=== PATIENT | female | born 1945 | race Caucasian/White ===

== ENCOUNTER → 2019-02-17 12:25 | Outpatient (CLI) | payer OTHER, SELFPAY ==
--- NOTE | 2019-02-17 | DI.US.S_ITS ---
PROCEDURE: US ABDOMEN LIMITED INDICATIONS: ABNOMAL LFTS TECHNIQUE: Real-time focused scanning was performed of the abdomen, with image documentation. COMPARISON: None. FINDINGS: Liver is diffusely increased in echogenicity. No focal hepatic abnormalities identified. Normal hepatic size. Gallbladder is contracted and suboptimally visualized in this patient who did not fast prior to the examination. No biliary dilatation. Normal pancreas. IMPRESSION: 1. Increased hepatic echogenicity noted possibly related to hepatic steatosis but other sources of hepatocellular disease cannot be excluded. Recommend clinical correlation. 2. Contracted gallbladder which is suboptimally visualized. Dictated by: Alvin BROWN Interpreted: Julina Rocha MD on 02/17/2019 at 16:08 Approved by: Julian Rocha M.D. on 02/17/2019 at 16:33
== END ==
PROVIDERS: Visit Provider Internal Medicine
DX: R74.8 Abnormal levels of other serum enzymes (principal)
CPT/HCPCS: 76705

== ENCOUNTER 2022-01-04 11:36 | Emergency (ER) | payer OTHER, SELFPAY ==
[2022-01-04 11:55] VITALS: BP 129/56; PULSE 122; RESP 18; TEMP 39.4; O2SAT 93; BMI 27.3
--- NOTE | 2022-01-04 12:00 | DI.RAD.S_ITS ---
PROCEDURE: XR CHEST 1V INDICATIONS: suspected sepsis TECHNIQUE: One view of the chest was acquired. COMPARISON: None. FINDINGS: Surgical changes and devices: None. Lungs and pleura: There is mild, diffuse interstitial prominence. No focal airspace consolidation. No pleural effusion or pneumothorax. Mediastinum: Mediastinal contours appear normal. Heart size is normal. Bones and chest wall: No suspicious bony lesions. Overlying soft tissues appear unremarkable. IMPRESSION: Interstitial prominence suggesting edema or early ARDS. Dictated by: Kiya Peguero M.D. on 01/04/2022 at 13:34 Approved by: Kiya Peguero M.D. on 01/04/2022 at 13:34
[2022-01-04] MEDS: SODIUM CHLORIDE 0.9% 1,000 ML 1000 ML IV (12:27)
[2022-01-04] MEDS: ACETAMINOPHEN 325 MG TABLET 975 MG PO (12:27)
--- NOTE | 2022-01-04 12:35 | PC.NURSE ---
lab draw and iv started by [facility] Dental Surgeon student.
[2022-01-04 12:57] LABS: Add Manual Diff / Slide Review NO; Basophils Absolute Auto 0 /uL (0-100); Basophils Percent Auto 0.3 % (0-2); Eosinophils Absolute Auto 100 /uL (0-450); Eosinophils Percent Auto 0.7 % (2-4); Hematocrit 38.1 % (36-46); Lymphocytes Absolute Auto 400 /uL (1100-4500); Mean Corpuscular HGB Conc 34.1 % (30-36); Mean Corpuscular Hemoglobin 30.2 PG (26-34); Mean Corpuscular Volume 88.6 fL (80-100); Monocytes Absolute Auto 500 /uL (0-900); Monocytes Percent Auto 3.8 % (3-14); Neutrophils Absolute Auto 11200 /uL (1500-7000); Neutrophils Percent Auto 92.2 % (50-75); Platelet Count 289 X10^3/uL (150-400); Red Cell Distribution Width 13.4 % (11.6-14.8); White Blood Cell Count 12.2 X10^3/uL (4.5-11.0)
[2022-01-04 13:00] VITALS: PULSE 108; RESP 19; O2SAT 93
[2022-01-04 13:00] LABS: Lactate (Lactic Acid) 1.1 mmol/L (0.7-2.1)
[2022-01-04 13:01] VITALS: BP 100/52; PULSE 104; RESP 17; O2SAT 93
[2022-01-04 13:02] LABS: Alanine Aminotransferase 67 IU/L (<35); Albumin 4.2 g/dL (3.5-5.0); Albumin Globulin Ratio 1.2 (1.0-2.8); Alkaline Phosphatase 163 U/L (38-126); Aspartate Aminotransferase 49 IU/L (14-36); BUN Creatinine Ratio 18.2 (6-22); Bilirubin Total 0.7 mg/dL (0.2-1.3); Blood Urea Nitrogen 14 mg/dL (7-17); Carbon Dioxide 28 mmol/L (22-32); Chloride 95 mmol/L (98-107); Estimated Glomerular Filt Rate > 60 mL/min (>60); Globulin 3.4 g/dL (1.7-4.1); Glucose 118 mg/dL (80-110); HEMOLYSIS < 15 (0-50); Lipase 61 U/L (23-300); Potassium 4.1 mmol/L (3.4-5.1); Sodium 131 mmol/L (137-145); Total Protein 7.6 g/dL (6.3-8.2)
--- NOTE | 2022-01-04 13:21 | ED.SEPSIS ---
HPI - Sepsis General Chief Complaint: Fever Mode of arrival: Wheelchair Source: patient Limitations: no limitations Evaluation Sepsis Screen: Possible Sepsis Risk Sepsis Infection Criteria Present: Suspected New Infection Narrative: Patient is a 76-year-old female without past medical history presenting today with fever. She actually says she started having some and chills on the 25 of December. She said she had fever for couple days and started feeling better and had fever again. No sore throat cough. Denies any painful frequent your. No chest pain. Just generally weak fatigued and not feeling well. She is currently febrile with a fever of 103 and tachycardic. Review of Systems Review of Systems Narrative: GENERAL: See HPI HEENT: Denies sinus pain, ear pain, sore throat, difficulty swallowing, neck pain RESPIRATORY: Denies dyspnea, cough, wheezing, hemoptysis, sputum. CARDIOVASCULAR: Denies chest pain, palpitations, orthopnea, edema GASTROINTESTINAL: Denies nausea, vomiting, abdominal pain, diarrhea, constipation, melena. : Denies dysuria, frequency, incontinence, hematuria, urinary retention, flank pain. MUSCULOSKELETAL: Denies weakness, joint pain, or bony pain SKIN: No rash, no erythema, no pruritus NEUROLOGIC: Denies weakness, dizziness, headache, numbness, change in speech, confusion PSYCHIATRIC: No concerning psychosocial issues. 12 point review of systems is negative except for those stated above and HPI Patient History Social History Smoking Status: Unknown if ever smoked Smoking Status: Unknown if ever smoked alcohol intake frequency: holidays/special occasions only Substance Use Type: does not use Exam Initial Vital Signs Initial Vital Signs: Vital Signs Temperature 103.0 F H 01/04/22 11:55 Pulse Rate 122 H 01/04/22 11:55 Respiratory Rate 18 01/04/22 11:55 Blood Pressure 129/56 L 01/04/22 11:55 Pulse Oximetry 93 01/04/22 11:55 Oxygen Delivery Method 01/04/22 11:55 GENERAL: Alert 76-year-old female and in no acute distress. HEENT: Head atraumatic,EOMI, pupils reactive, face symmetric, moist mucous membranes CARDIOVASCULAR: Regular rate and rhythm without murmurs, rubs or gallops. RESPIRATORY: Breath sounds equal bilaterally, no wheezes rales or rhonchi. ABDOMEN: Soft, nontender. Normoactive bowel sounds all 4 quadrants. No guarding or rebound. EXTREMITIES: Normal range of motion, no clubbing or edema. Neurovascularly intact NEUROLOGICAL: Alert and oriented x4.Normal gait and speech. SKIN: Warm, dry, no laceration, no petechiae, no rashes or lesions. Course Orders Ordered: Discontinued Medications Acetaminophen (Acetaminophen 325 Mg Tablet) 975 mg PO NOW ONE Stop: 01/04/22 12:24 Last Admin: 01/04/22 12:27 Dose: 975 mg Documented By: DONA Sodium Chloride (Normal Saline 0.9%) 1,000 mls @ 1,000 mls/hr IV BOLUS ONE Stop: 01/04/22 12:59 Last Infusion: 01/04/22 14:28 Dose: 0 mls/hr Documented By: Admin: 01/04/22 12:27 Dose: 1,000 mls/hr Documented By: DONA Vital Signs Vital signs: Vital Signs - 8 hr 01/04/22 11:55 01/04/22 13:44 Temperature 103.0 F H 99.7 F H Pulse Rate 122 H Respiratory Rate 18 Blood Pressure 129/56 L Pulse Oximetry 93 Oxygen Delivery Method Room Air Sepsis Guideline Criteria Level 1 - Infection Sepsis Infection Criteria Present: Suspected New Infection Treatment Initiated Antibiotics:: IV antimicrobials will be initiated as soon as possible after recognition of sepsis state and within one hour for both sepsis and septic shock. MDM - Sepsis Lab Data Result diagrams: 01/04/22 12:30 01/04/22 12:30 Labs: Lab Results 01/04/22 01/04/22 01/04/22 Range/Units 12:00 12:30 12:30 WBC 12.2 H (4.5-11.0) X10^3/uL RBC 4.30 (4.0-5.2) X10^6/uL Hgb 13.0 (12.0-16.0) g/dL Hct 38.1 (36-46) % MCV 88.6 (80-100) fL MCH 30.2 (26-34) PG MCHC 34.1 (30-36) % RDW 13.4 (11.6-14.8) % Plt Count 289 (150-400) X10^3/uL Neut % (Auto) 92.2 H (50-75) % Lymph % (Auto) 3.0 L (25-40) % Mclennan % (Auto) 3.8 (3-14) % Eos % (Auto) 0.7 L (2-4) % Baso % (Auto) 0.3 (0-2) % Neut # (Auto) 33129 H (1926-3910) /uL Lymph # (Auto) 400 L (3976-0043) /uL Mclennan # (Auto) 500 (0-900) /uL Eos # (Auto) 100 (0-450) /uL Baso # (Auto) 0 (0-100) /uL Sodium 131 L (137-145) mmol/L Potassium 4.1 (3.4-5.1) mmol/L Chloride 95 L (98-107) mmol/L Carbon Dioxide 28 (22-32) mmol/L BUN 14 (7-17) mg/dL Creatinine 0.77 (0.52-1.04) mg/dL Estimated GFR > 60 (>60) mL/min BUN/Creatinine Ratio 18.2 (6-22) Glucose 118 H (80-110) mg/dL Lactate (0.7-2.1) mmol/L Calcium 9.0 (8.4-10.2) mg/dL Total Bilirubin 0.7 (0.2-1.3) mg/dL AST 49 H (14-36) IU/L ALT 67 H (<35) IU/L Alkaline Phosphatase 163 H (38-126) U/L Total Protein 7.6 (6.3-8.2) g/dL Albumin 4.2 (3.5-5.0) g/dL Globulin 3.4 (1.7-4.1) g/dL Albumin/Globulin Ratio 1.2 (1.0-2.8) Lipase 61 (23-300) U/L Procalcitonin 0.40 (<0.5) ng/mL SARS-CoV-2 (PCR) Positive H (Negative) 01/04/22 Range/Units 12:30 WBC (4.5-11.0) X10^3/uL RBC (4.0-5.2) X10^6/uL Hgb (12.0-16.0) g/dL Hct (36-46) % MCV (80-100) fL MCH (26-34) PG MCHC (30-36) % RDW (11.6-14.8) % Plt Count (150-400) X10^3/uL Neut % (Auto) (50-75) % Lymph % (Auto) (25-40) % Mclennan % (Auto) (3-14) % Eos % (Auto) (2-4) % Baso % (Auto) (0-2) % Neut # (Auto) (8619-7791) /uL Lymph # (Auto) (0378-2547) /uL Mclennan # (Auto) (0-900) /uL Eos # (Auto) (0-450) /uL Baso # (Auto) (0-100) /uL Sodium (137-145) mmol/L Potassium (3.4-5.1) mmol/L Chloride (98-107) mmol/L Carbon Dioxide (22-32) mmol/L BUN (7-17) mg/dL Creatinine (0.52-1.04) mg/dL Estimated GFR (>60) mL/min BUN/Creatinine Ratio (6-22) Glucose (80-110) mg/dL Lactate 1.1 (0.7-2.1) mmol/L Calcium (8.4-10.2) mg/dL Total Bilirubin (0.2-1.3) mg/dL AST (14-36) IU/L ALT (<35) IU/L Alkaline Phosphatase (38-126) U/L Total Protein (6.3-8.2) g/dL Albumin (3.5-5.0) g/dL Globulin (1.7-4.1) g/dL Albumin/Globulin Ratio (1.0-2.8) Lipase (23-300) U/L Procalcitonin (<0.5) ng/mL SARS-CoV-2 (PCR) (Negative) Urine Dip Bedside Urine Glucose Negative Bedside Urine Bilirubin - Negative Bedside Urine Ketone +/- 5 Urine Specific Weaver 1.015 Bedside Urine Occult Blood - Negative Bedside Urine pH 7.0 Bedside Urine Protein - Negative Bedside Urine Urobilinogen - Negative Bedside Urine Nitrite - Negative Bedside Urine Leukocytes - Negative Esterase Imaging Data Chest x-ray: Radiologist's Impression: Patient: Emma Palumbo MR#: [id number] : 1945 Acct:[id number] Age/Sex: 76 / F Date of Service: 01/04/22 Loc: ED Accession Number: [id number] ?? Procedure: XR chest 1V Ordering Provider: Hannah Arnett D.O. PROCEDURE:? XR CHEST 1V ? INDICATIONS:? suspected sepsis ? TECHNIQUE:? One view of the chest was acquired.? ? COMPARISON:? None. ? FINDINGS:? ? Surgical changes and devices:? None.? ? Lungs and pleura:? There is mild, diffuse interstitial prominence.? No focal airspace consolidation.? No pleural effusion or pneumothorax. ? Mediastinum:? Mediastinal contours appear normal.? Heart size is normal.? ? Bones and chest wall:? No suspicious bony lesions.? Overlying soft tissues appear unremarkable.? ? IMPRESSION:? Interstitial prominence suggesting edema or early ARDS. ? ? Dictated by: Kiya Peguero M.D. on 01/04/2022 at 13:34 ? ? ECG Data Interpretation: Sinus tachycardia rate 122 p.r. interval 144 QRS [address] changes MDM Narrative Medical decision making narrative: Patient is COVID positive without underlying infection. She is not hypoxic although chest x-ray does show possibly some early ARDS. She is vaccinated as well. Patient has had symptoms ongoing for about 10 days. I encouraged her to monitor her oxygen at home. Currently she is 93-95% on room air. She is out of the window for any type of intervention, and does not need hospitalization require may yet. Discharge Plan Departure Patient Disposition: Home Clinical Impression: COVID-19 Instructions: COVID-19 Activity Restrictions/Additional Instructions: *You have been diagnosed with COVID-19 *What to do: At this time please monitor your oxygen. Continue to increase fluids as tolerated. *Continue to take medications as directed Tylenol 1000 mg every 6 hours if needed for fever or pain Ibuprofen 600 mg every 6 hours if needed for fever or pain *Follow up with your primary care provider in 2-3 days or call [phone] *Return to ER if you should have oxygen less than 91%, increasing shortness of breath, or any new, worsening or concerning symptoms Referrals: Tootie Krause MD [Primary Care Provider] - Visit Report Forms: Patient Portal/API
[2022-01-04 13:28] LABS: COVID19 -Nasal RAPID POSITIVE (Negative)
[2022-01-04 13:30] VITALS: BP 114/57; PULSE 103; RESP 18; O2SAT 93
[2022-01-04 13:44] VITALS: TEMP 37.6
[2022-01-04 14:00] VITALS: BP 116/55; PULSE 101; RESP 18; O2SAT 94
== END 2022-01-04 14:31 | disposition home or self-care (01) ==
PROVIDERS: Emergency Provider Emergency Medicine; PCP Internal Medicine
DX: U07.1 COVID-19 (principal); R05.9 Cough, unspecified
CPT/HCPCS: 36415; 71045; 80053; 81003; 83605; 83690; 84145; 85025; 87040; 87635; 93005; 93010; 96360; 96361; 99284; C9803